=== PATIENT | female | born 1950 | race Caucasian/White ===

== ENCOUNTER → 2018-07-17 10:12 | Outpatient (CLI) | payer MEDICARE, OTHER, SELFPAY ==
[2018-07-17 11:16] LABS: Thyroid Stim Hormone (TSH) 0.53 uIU/mL (0.358-3.74)
== END ==
PROVIDERS: Family Provider Internal Medicine; PCP Internal Medicine; Referring Provider Internal Medicine Endocrinology, Diabetes & Metabolism; Visit Provider Internal Medicine Endocrinology, Diabetes & Metabolism
DX: E03.9 Hypothyroidism, unspecified (principal)
CPT/HCPCS: 36415; 84443

== ENCOUNTER → 2018-11-14 10:32 | Outpatient (CLI) | payer MEDICARE, OTHER, SELFPAY ==
--- NOTE | 2018-11-14 10:35 | BI_ITS ---
MAMMOGRAPHY - UNILATERAL DIAGNOSTIC: RIGHT BREAST REASON FOR EXAM: Female, 67 years old. Prior left mastectomy. Remote right excisional breast biopsy. PERTINENT HISTORY: Personal history of breast cancer. Sister with breast cancer. Aunt with breast cancer. TECHNIQUE: Digital unilateral breast tico (3D mammographic acquisition) in the CC and MLO projections. 2-D mediolateral oblique (MLO) and craniocaudad (CC) views of both breasts were obtained. CAD: Full Field Digital Mammography with Computer Added Detection was performed. COMPARISON: Comparison is made with prior study dated September 05, 2017 and April 08, 2016. FINDINGS: Breast Composition: The breasts are extremely dense, which lowers the sensitivity of mammography. There are no dominant masses or suspicious calcifications. Stable focal area of architectural distortion is seen in the upper outer quadrant of the right breast and compared with prior excisional breast biopsy. No other significant abnormalities are identified. There has been no significant change since the prior study. BI/UNILAT RT SCRN W/CAD IMPRESSION: Stable unilateral diagnostic mammogram. One year follow-up mammogram recommended. (A) ASSESSMENT CATEGORY: BIRADS Category 2: Benign. A letter regarding these results will be sent to the patient by the facility within 30 days. Approximately 10% of breast cancers are not detected by mammography. A normal mammogram should not delay biopsy of a clinically suspicious abnormality. Electronically Signed: Linus Noble MD at 13:53 EST , Service support ,
== END ==
PROVIDERS: Family Provider Internal Medicine; PCP Internal Medicine; Referring Provider Internal Medicine; Visit Provider Internal Medicine
DX: Z12.31 Encounter for screening mammogram for malignant neoplasm of breast (principal); Z85.3 Personal history of malignant neoplasm of breast; Z80.3 Family history of malignant neoplasm of breast
CPT/HCPCS: 77061; 77067; G0279

== ENCOUNTER → 2018-11-30 10:51 | Outpatient (CLI) | payer MEDICARE, OTHER, SELFPAY ==
--- NOTE | 2018-11-30 11:05 | BD_ITS ---
STUDY: DUAL ENERGY X-RAY ABSORPTIOMETRY / DXA REASON FOR EXAM: Female, 67 years old. The patient is postmenopausal. Loss of height. TECHNIQUE: Bone Mineral Density (BMD) measurements of lumbar spine and bilateral hips were obtained. COMPARISON: Comparison is made with prior examination dated July 20, 2016. FINDINGS: Lumbar Spine (L1-L4): g/cm2 (1.130) / T-score (-0.4) / Z-score (1.2) Findings are suggestive of normal bone density with a low fracture risk. Increased kyphosis. Left Femur Total: g/cm2 (0.709) / T-score (-2.4) / Z-score (-1.0) Left Femoral Neck: g/cm2 (0.680) / T-score (-2.6) / Z-score (-1.0) Right Femur Total: g/cm2 (0.665) / T-score (-2.7) / Z-score (-1.4) Right Femoral Neck: g/cm2 (0.656) / T-score (-2.7) / Z-score (-1.2) The T-Scores on the most recent prior examination were: Lumbar Spine (L1-L4): There has been worsening of bone density since the previous examination. Left Femur Total: which represents a worsening of 5.6%. Right Femur Total: which represents a worsening of 6.7%. BD/Dexa Bone Density Study IMPRESSION: The patient is considered osteoporotic as outlined below according to World Matthew Organization (WHO) criteria with a high fracture risk. There has been worsening of bone density since the previous examination. Reference Information: The T-score is the number of standard deviations above or below the standard which is normal for young adults at their peak bone mineral density. The World Health Organization (WHO) interprets the T-scores as follows: Above -1 Normal bone density Between -1 and -2.5 Osteopenia Equal to / or below -2.5 Osteoporosis As a practical clinical guideline, osteopenia may be graded as follows: Mild -1 through -1.5 Moderate -1.6 through -2.0 Severe -2.1 through -2.4 The Z-score is the number of standard deviations above or below age-matched controls. A Z-score of less than -1.5 would be considered abnormal. References: 1. NIH Osteoporosis and Related Bone Diseases http://www.osteo.org 2. International Society for Clinical Densitometry http://www.iscd.org 3. National Osteoporosis Foundation http://www.nof.org Electronically Signed: Linus Noble, at 15:42 EST , Service support ,
== END ==
PROVIDERS: Family Provider Internal Medicine; PCP Internal Medicine; Referring Provider Internal Medicine; Visit Provider Internal Medicine
DX: M81.0 Age-related osteoporosis without current pathological fracture (principal)
CPT/HCPCS: 77080

== ENCOUNTER → 2018-12-07 12:27 | Outpatient (CLI) | payer SELFPAY ==
--- NOTE | 2018-12-07 12:33 | CT_ITS ---
STUDY: CT CHEST WITHOUT CONTRAST REASON FOR EXAM: Female, 67 years old. Calcium scoring examination. Radiological over read. RADIATION DOSAGE (If Supplied By Facility): CTDIvol = ( 12.19 ) mGy, DLP = ( 243.79 ) mGycm TECHNIQUE: Transaxial imaging was performed without the administration of intravenous contrast material. Individualized dose optimization techniques were used for this CT. COMPARISON: None. FINDINGS: Minimal increased markings at the lung bases suggestive of bowing or scarring. There is no demonstrated pleural abnormality. Minimal pericardial thickening along the right side of the base of the heart. There are multiple small lymph nodes within the mediastinum, which are normal in size and morphology most compatible with reactive lymph hyperplasia. Calcified bilateral hilar lymph nodes more prominent on the right side. Normal unenhanced pulmonary arteries. Normal aorta arch and descending thoracic aorta. There are multi-level degenerative changes of the thoracic spine. There is no demonstrated abnormality of the visualized upper abdomen. CT/Limited Chest CT w/CCTA IMPRESSION: Calcified mediastinal and hilar adenopathy. Minimal pericardial thickening at the base along the right side of the heart. Electronically Signed: Linus Noble, at 8:27 EDT , Service support ,
--- NOTE | 2018-12-08 12:33 | CA.SCORE ---
Calcium Scoring Date of Study:: 12/07/18 Coronary Calcium Scoring: Coronary artery calcium score: Left main: 0 Left anterior descendin Left circumflex: 0 Right coronary artery: 0 Total Agatston score: 0 Conclusion: Conclusion: In a published study, 0% of people of the same gender and similar age had the same or lower scores. Impression: Impression: The total calcium score (0) is below the 25th percentile for women between the ages of 65 and 69. (Exact percentile calculated to be 0%; this means 0% of the population has similar calcium score and 99% of the population is a higher calcium score than this patient.) Calcium score of 0 demonstrates no identifiable atherosclerotic plaque. Very low cardiovascular disease risk. There is a less than 5% chance of presence of coronary artery disease. Essentially a negative examination. A full evaluation of cardiac risk should include an assessment of all conventional risk factors, and the scores and percentile ranking is reported herein should be evaluated in this context. This note was generated using a voice recognition system and there may be incorrect words, spelling or punctuation that were not noted when reviewing the office note prior to saving.
== END ==
PROVIDERS: Family Provider Internal Medicine; PCP Internal Medicine; Referring Provider Internal Medicine; Visit Provider Internal Medicine
DX: Z78.0 Asymptomatic menopausal state (principal)
CPT/HCPCS: 75571; 76380

== ENCOUNTER → 2019-01-02 11:01 | Outpatient (CLI) | payer MEDICARE, OTHER, SELFPAY ==
[2019-01-02 12:54] LABS: Thyroid Stim Hormone (TSH) 2.17 uIU/mL (0.358-3.74)
== END ==
PROVIDERS: Family Provider Internal Medicine; PCP Internal Medicine; Referring Provider Internal Medicine Endocrinology, Diabetes & Metabolism; Visit Provider Internal Medicine Endocrinology, Diabetes & Metabolism
DX: E03.9 Hypothyroidism, unspecified (principal)
CPT/HCPCS: 36415; 84443

== ENCOUNTER → 2019-03-13 14:52 | Outpatient (CLI) | payer MEDICARE, OTHER, SELFPAY ==
[2019-01-03 09:48] VITALS: BMI 20.9
[2019-03-13 14:57] VITALS: BP 96/59; PULSE 75; RESP 18; TEMP 36.4; O2SAT 95; BMI 20.3
[2019-03-13] MEDS: DENOSUMAB 60 MG/ML ML SQ (15:05)
== END ==
PROVIDERS: Family Provider Internal Medicine; PCP Internal Medicine; Referring Provider Internal Medicine; Visit Provider Internal Medicine
DX: M81.0 Age-related osteoporosis without current pathological fracture (principal)
CPT/HCPCS: 96372; J0897

== ENCOUNTER → 2019-03-19 13:52 | Outpatient (CLI) | payer MEDICARE, OTHER, SELFPAY ==
[2019-01-03 09:48] VITALS: BMI 20.9
[2019-03-13 14:57] VITALS: BMI 20.3
--- NOTE | 2019-03-19 13:57 | US_ITS ---
HISTORY: Thyroid disease. Comparison CT scan of the neck dated February 12, 2016 demonstrates that the right lobe of the thyroid gland has been resected, and the left lobe has enlarged. EXAMINATION: US Thyroid (eg thyroid, parathyroid, parotid) TECHNIQUE: Ortiz scale and color doppler imaging was performed of the thyroid gland. COMPARISON: Neck CT of February 12, 2016 FINDINGS: RIGHT THYROID LOBE: Has been resected. LEFT THYROID LOBE: Measures 6.7 x 2.5 x 3.6 cm. Heterogeneous echotexture with normal vascularity. No thyroid nodules are present. ISTHMUS: Partially remains and is 3 mm in diameter. US/Thyroid IMPRESSION: Findings are similar to the CT scan of 2016. The right lobe and part of the thyroid isthmus of the thyroid gland have been resected. The remaining left lobe has hypertrophied and is heterogeneous. No focal thyroid lesions are perceived. at 0345 Reported and signed by: Chalo Nesbitt MD Electronically Signed: Chalo Nesbitt MD at 3:48 EDT Tel , Service support ,
== END ==
PROVIDERS: Family Provider Internal Medicine; PCP Internal Medicine; Referring Provider Internal Medicine Endocrinology, Diabetes & Metabolism; Visit Provider Internal Medicine Endocrinology, Diabetes & Metabolism
DX: E04.2 Nontoxic multinodular goiter (principal)
CPT/HCPCS: 76536

== ENCOUNTER → 2019-07-03 08:44 | Outpatient (CLI) | payer MEDICARE, OTHER, SELFPAY ==
[2019-03-13 14:57] VITALS: BMI 20.3
[2019-07-03 11:19] LABS: Thyroid Stim Hormone (TSH) 1.88 uIU/mL (0.358-3.74)
== END ==
PROVIDERS: Family Provider Internal Medicine; PCP Internal Medicine; Referring Provider Internal Medicine Endocrinology, Diabetes & Metabolism; Visit Provider Internal Medicine Endocrinology, Diabetes & Metabolism
DX: E89.0 Postprocedural hypothyroidism (principal)
CPT/HCPCS: 36415; 84443

== ENCOUNTER → 2019-09-12 12:50 | Outpatient (CLI) | payer MEDICARE, OTHER, SELFPAY ==
[2019-03-13 14:57] VITALS: BMI 20.3
[2019-09-12] MEDS: DENOSUMAB 60 MG/ML ML SQ (13:11)
[2019-09-12 13:12] VITALS: BP 98/70; PULSE 67; RESP 14; TEMP 36.3; O2SAT 99; BMI 20.3
== END ==
PROVIDERS: Family Provider Internal Medicine; PCP Internal Medicine; Referring Provider Internal Medicine; Visit Provider Internal Medicine
DX: M81.0 Age-related osteoporosis without current pathological fracture (principal)
CPT/HCPCS: 96372; J0897

== ENCOUNTER → 2019-11-26 12:50 | Outpatient (CLI) | payer MEDICARE, OTHER, SELFPAY ==
[2019-09-12 13:12] VITALS: BMI 20.3
--- NOTE | 2019-11-26 12:53 | BI_ITS ---
MAMMOGRAPHY - UNILATERAL SCREENING: RIGHT BREAST REASON FOR EXAM: Female, 68 years old. Routine annual screening examination (unilateral). PERTINENT HISTORY: Previous left mastectomy for DCIS UNILATERAL RIGHTBreast DIGITAL MAMMOGRAM WITH TOMOSYNTHESIS: Mediolateraloblique and craniocaudal views demonstrate no evidence of dominant parenchymal masses. No cluster of microcalcifications or architectural distortion is seen. No evidence of skin thickening is identified. There has been no significant change since 11/14/2018. Breast Density: The breast tissue is extremely dense which may lower the sensitivity of mammography. CAD was used to assist in final assessment. IMPRESSION: NORMAL RIGHT BREAST MAMMOGRAM. FINAL ASSESSMENT: BIRAD 1 (NEGATIVE) YEARLY MAMMOGRAM RECOMMENDED Electronically Signed: Richard Elizabeth, at 18:25 EST Tel , Service support , BI/SCREEN MAMM (CAD) W/YOVANI UNI R
== END ==
PROVIDERS: PCP Internal Medicine; Referring Provider Internal Medicine; Visit Provider Internal Medicine
DX: Z12.31 Encounter for screening mammogram for malignant neoplasm of breast (principal)
CPT/HCPCS: 77063; 77067

== ENCOUNTER → 2020-03-13 13:20 | Outpatient (CLI) | payer MEDICARE, OTHER, SELFPAY ==
[2019-09-12 13:12] VITALS: BMI 20.3
[2020-03-13 13:31] VITALS: BP 103/69; PULSE 57; RESP 18; TEMP 35.9; O2SAT 100; BMI 20.3
[2020-03-13] MEDS: DENOSUMAB 60 MG/ML SQ (13:37)
== END ==
PROVIDERS: PCP Internal Medicine; Referring Provider Internal Medicine; Visit Provider Internal Medicine
DX: M81.0 Age-related osteoporosis without current pathological fracture (principal)
CPT/HCPCS: 96372; J0897

== ENCOUNTER → 2020-05-28 13:08 | Outpatient (CLI) | payer MEDICARE, OTHER, SELFPAY ==
[2020-03-13 13:31] VITALS: BMI 20.3
[2020-05-28 14:01] LABS: Thyroid Stim Hormone (TSH) 1.76 uIU/mL (0.358-3.74)
== END ==
PROVIDERS: PCP Internal Medicine; Referring Provider Internal Medicine Endocrinology, Diabetes & Metabolism; Visit Provider Internal Medicine Endocrinology, Diabetes & Metabolism
DX: E89.0 Postprocedural hypothyroidism (principal); M81.0 Age-related osteoporosis without current pathological fracture
CPT/HCPCS: 36415; 84443

== ENCOUNTER → 2020-09-11 12:58 | Outpatient (CLI) | payer MEDICARE, OTHER, SELFPAY ==
[2019-09-12 13:12] VITALS: BMI 20.3
[2020-03-13 13:31] VITALS: BMI 20.3
[2020-09-11 13:24] VITALS: BP 100/66; PULSE 64; RESP 18; TEMP 36.4; O2SAT 98; BMI 21.2
[2020-09-11] MEDS: DENOSUMAB 60 MG/ML SQ (13:27)
== END ==
PROVIDERS: PCP Internal Medicine; Referring Provider Internal Medicine; Visit Provider Internal Medicine
DX: M81.0 Age-related osteoporosis without current pathological fracture (principal)
CPT/HCPCS: 96372; J0897

== ENCOUNTER 2020-12-01 11:59 | Outpatient (RCR) | payer MEDICARE, OTHER, SELFPAY ==
[2020-09-11 13:24] VITALS: BMI 21.2
== END 2020-12-01 23:59 ==
LOC: IMMUN 11:59
PROVIDERS: PCP Internal Medicine; Visit Provider Family Medicine
DX: Z23 Encounter for immunization (principal)
CPT/HCPCS: 0011A; 0012A

== ENCOUNTER → 2020-12-15 09:22 | Outpatient (CLI) | payer MEDICARE, OTHER, SELFPAY ==
[2020-09-11 13:24] VITALS: BMI 21.2
[2020-12-15 11:11] LABS: Thyroid Stim Hormone (TSH) 2.06 uIU/mL (0.358-3.74)
== END ==
PROVIDERS: PCP Internal Medicine; Referring Provider Internal Medicine Endocrinology, Diabetes & Metabolism; Visit Provider Internal Medicine Endocrinology, Diabetes & Metabolism
DX: E03.9 Hypothyroidism, unspecified (principal)
CPT/HCPCS: 36415; 84443

== ENCOUNTER → 2021-03-06 07:58 | Outpatient (CLI) | payer MEDICARE, OTHER, SELFPAY ==
[2020-09-11 13:24] VITALS: BMI 21.2
--- NOTE | 2021-03-06 08:30 | MRI_ITS ---
STUDY: MRI BRAIN WITH AND WITHOUT CONTRAST REASON FOR EXAM: Female, 70 years old. VERTIGO -- Hx of breast CA and amp; venous angioma TECHNIQUE: Standardized multiplanar fat and water weighted pulse sequences were obtained. IV 11ml Dotarem was administered for the contrast portion of the examination. COMPARISON: None. FINDINGS: Normal size of the ventricles and extra-axial spaces for the patient''s age. There are multiple white matter hyperintensities, distributed throughout the deep white matter tracts of the cerebral hemispheres, consistent with moderate chronic white matter ischemic changes. There is no evidence for recent intracranial ischemia or other cause of cytotoxic edema on diffusion weighted imaging (DWI). Normal bilateral basal ganglia. Normal thalami. There is no extra-axial fluid accumulation. Normal flow voids within the major intracranial circulation suggesting patency by spin echo criteria. Normal venous enhancement. There is no enhancing intra-axial or extra-axial abnormality. Normal sella turcica, pituitary gland, infundibular stalk, optic chiasm and hypothalamus. Normal tectal plate and pineal gland. Normal midbrain, shamir and medulla. Within the left cerebellum is a incidental developmental venous anomaly. Normal basal cisterns. Normal bilateral temporal bones. Normal bilateral internal auditory canals. No demonstrated orbital abnormality, within the constraints of a routine brain study. Normal visualized paranasal sinuses. Normal calvarium and skull base. Normal visualized soft tissue structures. Normal visualized upper cervical spine. MRI/Brain W/WO Contrast IMPRESSION: Moderate periventricular white matter microvascular ischemic changes. No evidence of underlying IAC abnormality or abnormal enhancement. Left cerebellar incidental developmental venous anomaly. Electronically Signed: Dre Bustamante DO at 10:15 EDT , Service support ,
--- NOTE | 2021-03-06 11:29 | US_ITS ---
STUDY: ULTRASOUND OF THE FEMALE PELVIS - COMPLETE REASON FOR EXAM: Female, 70 years old. PELVIC CRAMPING LMP: Patient is postmenopausal. TECHNIQUE: Transvaginal TECHNICAL QUALITY: Adequate. COMPARISON: None. FINDINGS: The uterus is anteflexed and is in a midline position. The uterus measures 5.9 cm x 2.9 cm x 1.6 cm. There is a Nabothian cyst of the cervix. The endometrium is thickened and measures 9 point mm in thickness, and is fluid distended. There is no demonstrated endometrial mass. There is no demonstrated myometrial mass. I.U.D. - The patient does not have an I.U.D. The patient is status post right oophorectomy. The patient is status post left oophorectomy. There is no fluid in the cul-de-sac. US/Transvaginal Non- IMPRESSION: Fluid distended endometrium measuring 9 mm. Clinical correlation recommended. Electronically Signed: Linus Noble MD at 12:59 EDT , Service support ,
== END ==
PROVIDERS: PCP Internal Medicine; Referring Provider Internal Medicine; Visit Provider Internal Medicine
DX: R10.2 Pelvic and perineal pain (principal); D18.02 Hemangioma of intracranial structures; R51.9 Headache, unspecified; H93.19 Tinnitus, unspecified ear; H81.91 Unspecified disorder of vestibular function, right ear; Z85.3 Personal history of malignant neoplasm of breast
CPT/HCPCS: 70553; 76830; A9575

== ENCOUNTER → 2021-03-12 12:52 | Outpatient (CLI) | payer MEDICARE, OTHER, SELFPAY ==
[2020-03-13 13:31] VITALS: BMI 20.3
[2020-09-11 13:24] VITALS: BMI 21.2
[2021-03-12 13:04] VITALS: BP 107/71; PULSE 58; RESP 16; TEMP 36.3; O2SAT 99; BMI 21.9
[2021-03-12] MEDS: DENOSUMAB 60 MG/ML SC (13:11)
== END ==
PROVIDERS: PCP Internal Medicine; Referring Provider Internal Medicine; Visit Provider Internal Medicine
DX: M81.0 Age-related osteoporosis without current pathological fracture (principal)
CPT/HCPCS: 96372; J0897

== ENCOUNTER → 2021-03-18 11:22 | Outpatient (CLI) | payer MEDICARE, OTHER, SELFPAY ==
[2020-09-11 13:24] VITALS: BMI 21.2
[2021-03-12 13:04] VITALS: BMI 21.9
--- NOTE | 2021-03-18 11:25 | BD_ITS ---
STUDY: DUAL ENERGY X-RAY ABSORPTIOMETRY / DXA REASON FOR EXAM: Female, 70 years old. M810. The patient is postmenopausal. Loss of height. TECHNIQUE: Bone Mineral Density (BMD) measurements of lumbar spine and bilateral hips were obtained. COMPARISON: Comparison is made with prior examination of 11/30/2018. FINDINGS: Lumbar Spine (L1-L4): g/cm2 (1.231) / T-score (0.4) / Z-score (2.1) Findings are suggestive of normal bone density with a low fracture risk. Left Femur Total: g/cm2 (0.745) / T-score (-2.1) / Z-score (-0.6) Left Femoral Neck: g/cm2 (0.686) / T-score (-2.5) / Z-score (-0.8) Right Femur Total: g/cm2 (0.734) / T-score (-2.2) / Z-score (-0.7) Right Femoral Neck: g/cm2 (0.683) / T-score (-2.6) / Z-score (0.9) The T-Scores on the most recent prior examination were: Lumbar Spine (L1-L4): There has been improvement of bone density since the previous examination. Left Femur Total: which represents an improvement of 5.1%. Right Femur Total: which represents an improvement of 10.4%. BD/Dexa Bone Density Study IMPRESSION: The patient is considered osteoporotic as outlined below according to World Matthew Organization (WHO) criteria with a high fracture risk. There has been improvement of bone density since the previous examination. Reference Information: The T-score is the number of standard deviations above or below the standard which is normal for young adults at their peak bone mineral density. The World Health Organization (WHO) interprets the T-scores as follows: Above -1 Normal bone density Between -1 and -2.5 Osteopenia Equal to / or below -2.5 Osteoporosis As a practical clinical guideline, osteopenia may be graded as follows: Mild -1 through -1.5 Moderate -1.6 through -2.0 Severe -2.1 through -2.4 The Z-score is the number of standard deviations above or below age-matched controls. A Z-score of less than -1.5 would be considered abnormal. References: 1. NIH Osteoporosis and Related Bone Diseases www osteo.org 2. International Society for Clinical Densitometry www iscd.org 3. National Osteoporosis Foundation www nof.org Electronically Signed: Linus Noble MD at 12:47 EDT , Service support ,
--- NOTE | 2021-03-18 11:26 | BI_ITS ---
MAMMOGRAPHY - UNILATERAL SCREENING: LEFT BREAST REASON FOR EXAM: Female, 70 years old. Routine annual screening examination (unilateral). PERTINENT HISTORY: Personal history of breast cancer. Prior left mastectomy. Sister with breast cancer. Aunt with breast cancer. Right excisional breast biopsies. TECHNIQUE: Digital unilateral breast yovani (3D mammographic acquisition) in the CC and MLO projections. 2-D mediolateral oblique (MLO) and craniocaudad (CC) views of both breasts were obtained. CAD: Full Field Digital Mammography with Computer Added Detection was performed. COMPARISON: Comparison is made with prior study dated 11/26/2019 and 11/14/2018. FINDINGS: Breast Composition: The breasts are extremely dense, which lowers the sensitivity of mammography. There are no dominant masses or suspicious calcifications. Stable focal area of architectural distortion in the upper-outer quadrant of right breast with history of prior excisional breast biopsy. No other significant abnormalities are identified. There has been no significant change since the prior study. BI/SCREEN MAMM (CAD) W/YOVANI UNI L IMPRESSION: Stable unilateral screening mammogram. Yearly follow-up mammogram recommended. (A) ASSESSMENT CATEGORY: BIRADS Category 2: Benign. A letter regarding these results will be sent to the patient by the facility within 30 days. Approximately 10% of breast cancers are not detected by mammography. A normal mammogram should not delay biopsy of a clinically suspicious abnormality. [id number] Electronically Signed: Linus Noble MD at 12:19 EDT , Service support ,
== END ==
PROVIDERS: PCP Internal Medicine; Referring Provider Internal Medicine; Visit Provider Internal Medicine
DX: M81.0 Age-related osteoporosis without current pathological fracture (principal); Z12.31 Encounter for screening mammogram for malignant neoplasm of breast
CPT/HCPCS: 77063; 77067; 77080

== ENCOUNTER 2021-04-21 08:15 | Day surgery (SDC) | payer MEDICARE, OTHER, SELFPAY ==
[2021-03-24 10:55] VITALS: BMI 21.9
[2021-03-27 14:30] VITALS: BMI 21.9
--- NOTE | 2021-04-21 | EMB_PTH ---
PATIENT: JEFF KEVIN LOC: [facility] [place][id number] AGE/SX: 70/F ROOM: RE04/21/[address]: Dr. Mary Grace Ibrahim MD : 1950 BED: DIS: 04/21/2021 SPEC #: [id number] RECD: 04/21/21 13:07 STATUS: ANABELL GABRIEL #: [id number] ANNE: 04/21/21 00:[address]: Mary Grace Ibrahim DEPT: SURGICAL PATHOLOGY RECD BY: Kirby Martel ENTERED: 04/21/21 13:07 SP TYPE: ENDOM BX/C OT DR: Dr. Veronica Whyte MD Tissues: Endometrium, NOS Procedures: Surgery Specimen Level IV HEADER OPERATION: Hysteroscopy, dilation and curettage, polypectomy PRE-OP DIAGNOSIS: Thickened endometrium, dyspareunia TISSUE SUBMITTED: Endometrial curettings and polyp MICROSCOPIC DIAGNOSIS Endometrial curettings and polyp: Rare strips of benign glandular mucosa and squamous mucosa. See comment. AM:rory 04/22/2021 COMMENT The specimen primarily consists of amorphous proteinaceous material. A polyp is not identified. Clinical correlation is suggested. MICROSCOPIC DESCRIPTION Slides are reviewed. GROSS DESCRIPTION Received in fixative is one container labeled with the patient's name and designated endometrial curettings and polyp. The specimen consists of a scant amount of soft tissue. The specimen is totally submitted for cell block preparation. / SJ:rory 04/21/21 TC:5 CPT: 02048
--- NOTE | 2021-04-21 08:47 | EKG12_ITS ---
Test Reason : PRE OP Blood Pressure : / mmHG Vent. Rate : 064 BPM Atrial Rate : 064 BPM P-R Int : 158 ms QRS Dur : 092 ms QT Int : 414 ms P-R-T Axes : 033 -49 051 degrees QTc Int : 427 ms Normal sinus rhythm Left anterior fascicular block Abnormal ECG When compared with ECG of 10-AUG-2004 12:22, Left anterior fascicular block is now Present Confirmed by GENEVIEVE FERMIN, ANGELA ([id number]), tape editor MARY KEMP ([id number]) on 04/24/2021 12:50:23 PM Referred By: Mary Grace Ibrahim Confirmed By:ANGELA VALLEJO MD
[2021-04-21 08:51] VITALS: BP 123/69; PULSE 64; RESP 14; TEMP 36.2; O2SAT 100; BMI 23.4
--- NOTE | 2021-04-21 09:03 | PCM.HP.BLA ---
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 Is patient in pain?: No Allergies No Known Allergies Allergy (Verified 03/12/21 13:07) Medications levothyroxine 88 mcg tablet 88 mcg PO DAILY 09/05/18 [History Confirmed 03/24/21] vitamins A,C,P-ccba-uxxtjm 7,160 unit-113 mg-100 unit tablet 2 tab PO BID 09/05/18 [History Confirmed 03/24/21] biotin 1,000 mcg chewable tablet 1,000 mcg PO DAILY 03/13/21 [History Confirmed 03/24/21] calcium-magnesium 300 mg-300 mg tablet 1 tab PO DAILY 03/13/21 [History Confirmed 03/24/21] cholecalciferol (vitamin D3) 50 mcg (2,000 unit) capsule 50 mcg PO DAILY 03/13/21 [History Confirmed 03/24/21] denosumab 60 mg/mL subcutaneous syringe 60 mg SUBCUT [id number] 03/13/21 [History Confirmed 03/24/21] sertraline 25 mg tablet 50 mg PO DAILY tab 03/13/21 [History Confirmed 03/24/21] B-complex with vitamin C 1 tab PO DAILY 03/24/21 [History Confirmed 03/24/21] Is last menstrual period known: No Post menopausal: Yes Patient : No : No [facility] Medical History (Updated 03/26/21 @ 15:[address] Mary Grace Ibrahim MD) Arthritis Back problem Bone fracture Breast cancer Breast lump in female Cardiomyopathy Cataracts, bilateral Generalized headaches Goiter History of HPV infection HPV (human papilloma virus) infection Macular degeneration Osteoarthritis Rheumatoid arthritis Skin cancer Thyroid disease Vestibular disorder Vision problems Surgical History (Updated 03/24/21 @ 10:52 by Mabel Wilde) History of colposcopy History of ectopic History of left oophorectomy History of mastectomy History of right oophorectomy History of thyroidectomy Family History (Updated 03/24/21 @ 10:54 by Mabel Wilde) Mother , AT AGE 97 Arthritis Heart disease Osteoporosis Thyroid disorder Father Depression (emotion) Suicide Sister Arthritis Breast cancer Thyroid disorder Aunt Breast cancer Ovarian cancer Unknown Breast cancer first cousin and nieces Social History (Updated 03/24/21 @ 10:55 by Mabel Iraheta Smoking Status: Former smoker alcohol intake: never substance use type: does not use caffeine: Yes what type of physical activity do you participate in: walking seatbelt use: always do you feel safe at home: Yes additional social history: DOES NOT USE ASPIRIN DOES USE IBUPROFEN HPI Referral for pelvic u/s findings Details: JEFF KEVIN is a 70 year old who presents for endometrial thickening. She has a history of breast cancer and strong family history of cancer in general. She dneis any bleeding or abnormal discharge. She has some lower abdominal bloating. she was referred for a pelvic ultrasound by Dr Whyte that showed thickened lining. Female Reproductive History Questions: sexually active: Yes and dyspareunia: Yes (s/p micki luis eduardo and some dilators) Menopausal Symptoms: No night sweats Pregancy History 3 Elective abortions Hx Para 0 Spontaneous abortions Hx # Term Pregnancies Ectopic pregnancies Hx # Pregnancies Multiple births # of living children ROS Const Constitutional: Denies fatigue, night sweats, weight gain or weight loss ENT ENT: Reports system reviewed and no additional complaints, except as documented Cardio Card: Denies chest pain Resp Resp: Denies cough or dyspnea GI GI: Reports as per HPI; Denies abdominal pain, constipation, nausea or vomiting : Denies nipple discharge, urinary frequency, urinary incontinence, urinary hesitancy, urinary urgency, vaginal discharge, vaginal dryness, vaginal odor or vaginal pruritus Musc Musc: Reports arthralgias and back pain; Denies muscle weakness Skin Skin/Breast: Denies alopecia, change in hair, dry skin, breast mass, breast pain, breast skin changes or nipple discharge Neuro Neuro: Reports system reviewed and no additional complaints, except as documented Psych Psych: Reports system reviewed and no additional complaints, except as documented Endo Endo: Denies cold intolerance, excessive sweating, heat intolerance or polydipsia Fernando/Lymph Hematologic/Lymphatic: Denies easy bleeding, Denies easy bruising and Denies lymphadenopathy Exam Const General: cooperative, healthy appearing, comfortable, no acute distress and well developed Orientation: alert [facility] Head: normal to inspection and normocephalic Ears: hearing grossly normal bilaterally and external ears normal Nose: external nose normal and nares normal Face and sinus: normal facial exam Neck Neck: normal visual inspection and no lymphadenopathy Thyroid: thyroid normal Chest Chest palpation & inspection: normal inspection of the chest Resp Effort & Inspection: normal respiratory effort Auscultation: clear to auscultation bilaterally Cardio Rate: regular rate Rhythm: regular rhythm Heart Sounds: S1 normal and S2 normal GI Inspection: normal to inspection and non-distended Palpation: soft and no hepatosplenomegaly General: bladder normal to palpation External Female Exam: normal external appearance and normal appearance of the urethra Urethra: normal appearance of the urethra, normal palpation and no discharge Speculum Exam - Vagina: normal appearance of the vagina and normal vaginal discharge Speculum Exam - Cervix: normal appearance of the cervix and nontender Bimanual Exam- Vagina & Uterus: normal bimanual exam, uterine size normal, bladder normal to palpation, uterine shape normal, No tender, uterine mobility normal, consistency normal, normal palpation and non-tender Bimanual Exam- Adnexa, other: normal adnexae, adnexae mobile, no masses and normal Pelvic Support: normal Musc Other: gross motor intact no deficits, full bilateral strength Skin General: no rashes or lesions noted Neuro General: patient alert, patient awake, moves all extremities and no focal motor deficits Motor: muscle tone normal throughout Extrem General: normal to inspection and no pedal edema Psych Appearance: grossly normal Mental Status: mental status grossly normal Affect: normal affect Speech and Movement: speech and movement normal Coding Level of Care Code Off vis,new,level 4 Diagnoses Thickened endometrium R93.89 Dyspareunia Assessment and Plan Assessment and Plan (1) Thickened endometrium: Status: Acute Comment: plan d and c hysteroscopy for evaluation Plan - Dr. Mary Grace Ibrahim MD: After discussing the patient's diagnosis and treatment plan options, patient wishes to proceed with surgical management. I have discussed with the patient the risks, benefits, and alternatives of the procedure which include but are not limited to risks of anesthesia, bleeding, infection, possible damage to bowel, bladder, or surrounding vasculature which could lead to additional surgery to evaluate any complications. Patient agrees to procedure and wishes to proceed. ACOG/uptodate references given for additional information regarding procedure. (2) Dyspareunia: Status: Acute UPDATE- I have seen the patient and performed any clinically relevant updates to the history and physical exam. Mary Grace Ibrahim MD
[2021-04-21 09:08] LABS: Absolute Lymphocyte Count 0.76 X10^3/uL (0.83-4.51); Basophil# 0.02 X10^3/uL; Basophil% 0.4 % (0-1); Eosinophil# 0.08 X10^3/uL; Eosinophils% 1.5 % (0-5); Hematocrit 42.4 % (37-47); Hemoglobin 13.7 g/dL (12.0-15.0); Lymphocyte # 0.76 X10^3/ul (0.83-4.51); Lymphocyte % 14.1 % (19-41); Mean Corp Hgb Conc 32.3 g/dL (32-36); Mean Corpuscular Hgb 31.1 pg (27.0-32.0); Mean Corpuscular Volume 96.1 fL (81-99); Mean Platelet Vol. 10.8 fl (6.2-12.0); Monocyte# 0.53 X10^3/uL; Monocyte% 9.8 % (0-10); NRBC Flagged by Analyzer 0 % (0-5); Platelet Count 168 K/mm3 (150-450); RBC Distribution Width CV 12.8 % (11.6-14.6); RBC Distribution Width SD 46.1 fl (35.1-43.9); Red Blood Count 4.41 M/mm3 (4.2-5.4); White Blood Count 5.4 K/mm3 (4.4-11.0)
[2021-04-21] MEDS: Lactated Ringers 1,000 ML 125 ML IV (09:12)
[2021-04-21 09:27] LABS: AST(SGOT) 19 U/L (15-37); Alanine Aminotransfer ALT/SGPT 23 U/L (13-56); Albumin, Serum 3.7 g/dL (3.2-5.0); Alkaline Phosphatase 68 U/L (45-117); Anion Gap 4 (5-15); BUN 20 mg/dL (7-18); BUN/Creat Ratio 24.5 RATIO (10-20); Calcium,Total 8.4 mg/dL (8.5-10.1); Chloride 106 mmol/L (98-107); Creatinine, Serum 0.82 mg/dL (0.55-1.02); EST Glomerular Filtration Rate 74 mL/min (>60); Est Glom Filt Rate - Afr Amer 89 mL/min (>60); Estimated Creatinine Clearance 50.49 ml/min; Globulin 3.7 g/dL (2.2-4.2); Glucose 85 mg/dL (74-106); Protein, Total 7.4 g/dL (6.4-8.2); Sodium Level 140 mmol/L (136-145)
--- NOTE | 2021-04-21 10:53 | OP.PCM_ITS ---
Report of Operation Date of Procedure: 04/21/21 Pre-Operative Diagnosis: see problem list Post-Operative Diagnosis: same Surgery/Procedure Performed:: D&C hysteroscopy polypectomy Description of Surgical Findings:: Endometrial cavity filled with mucoid material due to severe cervical stenosis atrophic lining, small endocervical polyp statement clerks supervisor: None Type of Anesthesia: Local MAC Special Medications: none Specimen's removed: EMC endocervical polyp Drains: none Estimated Blood Loss (mL): 50 Fluids Replaced: crystalloid Description of Procedure: Patient was prepped and draped in a normal sterile fashion under MAC anesthesia. A weighted speculum was placed in the vagina and the anterior lip of the cervix was grasped with a single-tooth tenaculum. A paracervical block was placed with 1% lidocaine. Cervix was progressively dilated to allow passage of a 5 mm hysteroscope. The lining was fully visualized and noted to have a thin atrophic lining.. Uterine sounded to 7 cm. Curettage was performed and scant amount of atrophic cells and small endocervical polyp tissue was removed, sent to pathology. All instruments were removed from the vagina and excellent hemostasis was noted. Patient was awoken and taken to recovery in stable condition. Grafts/Implants Used: none Complications none Admit VTE Documentation VTE Present on Admission: No VTE Mechan Device Prophylaxis: SCD's Multi Select Codes Urinary/Genital Urinary/Genital CPT Codes: 71600 Hysteroscopy,EMC, Polypectomy
--- NOTE | 2021-04-21 10:54 | EX.PCM.DISCH ---
Discharge Instructions Procedure D&C Diet Discharge Diet: No restrictions Activity Discharge Activity: Return to Normal Activity, May Shower and May Take a Tub Bath (after 1 week) May resume sexual activity in: 1-2 weeks Weight Bearing Status: Weight bearing as tolerated Lifting Restrictions: none Dressing / Incision Call your doctor if you observe: Fever of 101 or Higher, Using more than 1 pad per hour, Shortness of breath and Uncontrolled pain Follow Up Care Please Follow Up With: Mary Grace Ibrahim MD When: Call [phone] to schedule appointment. Test Results: Test results from this visit will be discussed in further detail at your follow-up appointment, if applicable. Discharge Plan Admission Primary Reason for Your Visit: hysteroscopy Attending Provider: Mary Grace Ibrahim Primary Care Provider: Veronica Whyte Discharge Orders/Prescriptions Prescriptions: Continued vitamins A,C,V-fmvm-npnewl 7,160 unit-113 mg-100 unit tablet 7,160-113-100 bkyc-oh-mdtw tablet 1 tab PO BID RF: 0 B-complex with vitamin C Tablet 1 tab PO DAILY RF: 0 Prolia 60 mg/mL syringe 60 mg subcut [id number] RF: 0 biotin 1,000 mcg tablet,chewable 1,000 mcg PO DAILY RF: 0 cholecalciferol (vitamin D3) 50 mcg (2,000 unit) capsule 50 mcg PO DAILY RF: 0 calcium-magnesium 300-300 mg tablet 1 tab PO DAILY RF: 0 sertraline [Zoloft] 25 mg tablet 25 mg PO DAILY RF: 0 levothyroxine [Synthroid] 88 mcg Tablet 88 mcg PO SUTUTHSA RF: 0 levothyroxine [Synthroid] 88 mcg Tablet 44 mcg PO MOWEFR RF: 0 Referrals / Follow Up: Veronica Whyte MD [Primary Care Provider] - Mary Grace Ibrahim MD [STAFF PHYSICIAN] - Disposition Disposition (needs filled in before D/C Order can be placed): Home, Self Care
[2021-04-21] MEDS: Lidocaine 1% (20 ml mdv) 20 ML Vial (11:00)
[2021-04-21 11:27] VITALS: BP 104/68; BP 123/69; PULSE 66; RESP 16; TEMP 36.3; O2SAT 100
[2021-04-21 11:32] VITALS: BP 120/71; BP 123/69; PULSE 64; RESP 16; O2SAT 100
[2021-04-21 11:37] VITALS: BP 123/69; BP 131/53; PULSE 62; RESP 16; O2SAT 100
[2021-04-21 11:42] VITALS: BP 123/69; BP 128/71; PULSE 59; RESP 16; TEMP 36.2; O2SAT 100
[2021-04-21 12:31] VITALS: BP 123/69; BP 125/86; PULSE 57; RESP 16; TEMP 36.3; O2SAT 100
== END 2021-04-21 12:35 | disposition home or self-care (01) ==
LOC: SDC 08:15 → AC 08:16
PROVIDERS: PCP Internal Medicine; Referring Provider Obstetrics & Gynecology; Visit Provider Obstetrics & Gynecology
PROC: 0UDB8ZZ Extraction of Endometrium, Via Natural or Artificial Opening Endoscopic (ICD-10-PCS; CPT 58558; principal; 2021-04-21 09:35)
DX: N84.1 Polyp of cervix uteri (principal); M19.90 Unspecified osteoarthritis, unspecified site; M06.9 Rheumatoid arthritis, unspecified; E07.9 Disorder of thyroid, unspecified; F32.9 Major depressive disorder, single episode, unspecified; Z79.899 Other long term (current) drug therapy; E78.5 Hyperlipidemia, unspecified; Z87.891 Personal history of nicotine dependence; N94.10 Unspecified dyspareunia; R93.89 Abnormal findings on diagnostic imaging of other specified body structures
CPT/HCPCS: 00952; 58558; 80053; 85025; 86850; 86900; 86901; 88305; 93005; J7120; J2405

== ENCOUNTER → 2021-06-02 12:14 | Outpatient (CLI) | payer MEDICARE, OTHER, SELFPAY ==
[2021-06-02 14:28] LABS: Thyroid Stim Hormone (TSH) 3.56 uIU/mL (0.358-3.74)
== END ==
PROVIDERS: PCP Internal Medicine; Referring Provider Internal Medicine Endocrinology, Diabetes & Metabolism; Visit Provider Internal Medicine Endocrinology, Diabetes & Metabolism
DX: E03.9 Hypothyroidism, unspecified (principal)
CPT/HCPCS: 36415; 84443

== ENCOUNTER → 2021-09-10 12:59 | Outpatient (CLI) | payer MEDICARE, OTHER, SELFPAY ==
[2021-09-10 13:15] VITALS: BP 104/67; PULSE 79; RESP 16; TEMP 36.6; O2SAT 97
[2021-09-10] MEDS: DENOSUMAB 60 MG/ML SC (13:25)
== END ==
PROVIDERS: PCP Internal Medicine; Referring Provider Internal Medicine; Visit Provider Internal Medicine
DX: M81.0 Age-related osteoporosis without current pathological fracture (principal)
CPT/HCPCS: 96372; J0897

== ENCOUNTER 2021-12-15 07:41 | Outpatient (CLI) | payer MEDICARE, OTHER, SELFPAY ==
[2021-12-15 10:06] LABS: T4 Free Direct 1.07 ng/dL (0.76-1.46); Thyroid Stim Hormone (TSH) 3.67 uIU/mL (0.358-3.74)
== END 2021-12-15 23:59 | disposition home or self-care (01) ==
LOC: LAB 07:43
PROVIDERS: PCP Internal Medicine; Referring Provider Internal Medicine Endocrinology, Diabetes & Metabolism; Visit Provider Internal Medicine Endocrinology, Diabetes & Metabolism
DX: E03.9 Hypothyroidism, unspecified (principal)
CPT/HCPCS: 36415; 84439; 84443

== ENCOUNTER → 2022-03-11 | Outpatient (CLI) | payer MEDICARE, OTHER, SELFPAY ==
[2022-03-11] MEDS: DENOSUMAB 60 MG/ML SC (13:05)
[2022-03-11 13:10] VITALS: BP 129/78; PULSE 57; RESP 16; TEMP 36.2; O2SAT 100
== END | disposition home or self-care (01) ==
LOC: MEDOUTP 12:57
PROVIDERS: PCP Internal Medicine; Referring Provider Internal Medicine; Visit Provider Internal Medicine
DX: M81.0 Age-related osteoporosis without current pathological fracture (principal)
CPT/HCPCS: 96372; J0897

== ENCOUNTER → 2022-03-24 | Outpatient (CLI) | payer MEDICARE, OTHER, SELFPAY ==
--- NOTE | 2022-03-24 12:23 | BI_ITS ---
MAMMOGRAPHY - UNILATERAL SCREENING: RIGHT BREAST REASON FOR EXAM: Female, 71 years old. Routine annual screening examination (unilateral). PERTINENT HISTORY: Personal history of breast cancer at age 45 status post left mastectomy and chemotherapy. Sister with breast cancer. Aunt with breast cancer. TECHNIQUE: Digital unilateral breast yovani (3D mammographic acquisition) in the CC and MLO projections. 2-D mediolateral oblique (MLO) and craniocaudad (CC) views of both breasts were obtained. CAD: Full Field Digital Mammography with Computer Added Detection was performed. COMPARISON: Mammogram from 03/18/2021, 11/26/2019, 11/14/2018, 09/05/2017. FINDINGS: Breast Composition: The breasts are heterogeneously dense, which may obscure small masses. There are no dominant masses or suspicious calcifications. Stable area of architectural distortion in the right upper outer breasts consistent with history of prior excisional breast biopsy. No other significant abnormalities are identified. There has been no significant change since the prior study. BI/SCREEN MAMM (CAD) W/YOVANI UNI R IMPRESSION: Stable unilateral screening mammogram. Yearly follow-up mammogram recommended. (A) ASSESSMENT CATEGORY: BIRADS Category 2: Benign. A letter regarding these results will be sent to the patient by the facility within 30 days. Approximately 10% of breast cancers are not detected by mammography. A normal mammogram should not delay biopsy of a clinically suspicious abnormality. [id number] Electronically Signed: Ghulam Medina, at 15:48 EDT ,
== END | disposition home or self-care (01) ==
LOC: OPBI 12:22
PROVIDERS: PCP Internal Medicine; Visit Provider Internal Medicine
DX: Z12.31 Encounter for screening mammogram for malignant neoplasm of breast (principal)
CPT/HCPCS: 77063; 77067

== ENCOUNTER → 2022-06-09 | Outpatient (CLI) | payer MEDICARE, OTHER, SELFPAY ==
[2022-06-09 09:07] LABS: T4 Free Direct 1.16 ng/dL (0.76-1.46); Thyroid Stim Hormone (TSH) 4.68 uIU/mL (0.358-3.74)
== END | disposition home or self-care (01) ==
LOC: LAB 07:54
PROVIDERS: PCP Internal Medicine; Referring Provider Internal Medicine Endocrinology, Diabetes & Metabolism; Visit Provider Internal Medicine Endocrinology, Diabetes & Metabolism
DX: E03.9 Hypothyroidism, unspecified (principal)
CPT/HCPCS: 36415; 84439; 84443

== ENCOUNTER → 2022-09-10 | Outpatient (CLI) | payer MEDICARE, OTHER, SELFPAY ==
[2022-09-10 13:02] VITALS: BP 101/64; PULSE 65; RESP 16; TEMP 36.1; O2SAT 98; BMI 21.9
[2022-09-10] MEDS: DENOSUMAB 60 MG/ML SC (13:04)
== END | disposition home or self-care (01) ==
LOC: MEDOUTP 12:52
PROVIDERS: PCP Internal Medicine; Referring Provider Internal Medicine; Visit Provider Internal Medicine
DX: M81.0 Age-related osteoporosis without current pathological fracture (principal)
CPT/HCPCS: 96372; J0897

== ENCOUNTER → 2022-12-14 | Outpatient (CLI) | payer MEDICARE, OTHER, SELFPAY ==
[2022-12-14 08:50] LABS: T4 Free Direct 1.11 ng/dL (0.76-1.46); Thyroid Stim Hormone (TSH) 2.95 uIU/mL (0.358-3.74)
== END | disposition home or self-care (01) ==
LOC: LAB 08:05
PROVIDERS: PCP Internal Medicine; Referring Provider Internal Medicine Endocrinology, Diabetes & Metabolism; Visit Provider Internal Medicine Endocrinology, Diabetes & Metabolism
DX: E03.9 Hypothyroidism, unspecified (principal)
CPT/HCPCS: 36415; 84439; 84443

== ENCOUNTER 2023-03-18 12:50 | Outpatient (CLI) | payer MEDICARE, OTHER, SELFPAY ==
[2023-03-18 12:56] VITALS: BP 121/62; PULSE 65; RESP 16; TEMP 36.9; O2SAT 99; BMI 21.5
[2023-03-18] MEDS: DENOSUMAB 60 MG/ML SC (13:01)
== END 2023-03-18 12:51 | disposition home or self-care (01) ==
LOC: MEDOUTP 12:51
PROVIDERS: PCP Internal Medicine; Referring Provider Internal Medicine; Visit Provider Internal Medicine
DX: M81.0 Age-related osteoporosis without current pathological fracture (principal)
CPT/HCPCS: 96372; J0897

== ENCOUNTER → 2023-03-29 | Outpatient (CLI) | payer MEDICARE, OTHER, SELFPAY ==
--- NOTE | 2023-03-29 09:47 | BI_ITS ---
MAMMOGRAPHY - UNILATERAL SCREENING: RIGHT BREAST REASON FOR EXAM: Female, 72 years old. Routine annual screening examination (unilateral). PERTINENT HISTORY: Personal history of breast cancer. Prior left mastectomy. Prior right excisional breast biopsies. Sister with breast cancer. TECHNIQUE: Digital unilateral breast yovani (3D mammographic acquisition) in the CC and MLO projections. 2-D mediolateral oblique (MLO) and craniocaudad (CC) views of both breasts were obtained. CAD: Full Field Digital Mammography with Computer Added Detection was performed. COMPARISON: Comparison is made with prior study dated March 24, 2022 and March 18, 2021. FINDINGS: Breast Composition: The breasts are extremely dense, which lowers the sensitivity of mammography. There are no dominant masses or suspicious calcifications. Stable focal area of architectural distortion in the upper outer aspect of the right breast in keeping with prior excisional breast biopsy. No other significant abnormalities are identified. There has been no significant change since the prior study. BI/SCREEN MAMM (CAD) W/YOVANI UNI R IMPRESSION: Stable unilateral screening mammogram. Yearly follow-up mammogram recommended. (A) ASSESSMENT CATEGORY: BIRADS Category 2: Benign. A letter regarding these results will be sent to the patient by the facility within 30 days. Approximately 10% of breast cancers are not detected by mammography. A normal mammogram should not delay biopsy of a clinically suspicious abnormality. [id number] Electronically Signed: Linus Noble MD at 11:54 EDT ,
--- NOTE | 2023-03-29 09:58 | BD_ITS ---
STUDY: DUAL ENERGY X-RAY ABSORPTIOMETRY / DXA REASON FOR EXAM: Female, 72 years old. [id number] TECHNIQUE: Bone Mineral Density (BMD) measurements of lumbar spine and bilateral hips were obtained. COMPARISON: Comparison is made with prior study dated March 18, 2021. FINDINGS: Lumbar Spine (L1-L4): g/cm2 (1.091) / T-score (0.4) / Z-score (2.6) Findings are suggestive of normal bone density with a low fracture risk. Left Femur Total: g/cm2 (0.686) / T-score (-2.1) / Z-score (-0.5) Left Femoral Neck: g/cm2 (0.595) / T-score (-2.3) / Z-score (-0.4) Right Femur Total: g/cm2 (0.652) / T-score (-2.4) / Z-score (-0.7) Right Femoral Neck: g/cm2 (0.599) / T-score (-2.2) / Z-score (-0.3) The T-Scores on the most recent prior examination were: Lumbar Spine (L1-L4): There has been worsening of bone density since the previous examination. Left Femur Total: which represents no significant change. . Right Femur Total: which represents a worsening of 3.5%. BD/Dexa Bone Density Study IMPRESSION: The patient is considered osteopenic as outlined below according to World Matthew Organization (WHO) criteria with a high fracture risk. There has been worsening of bone density since the previous examination. Reference Information: The T-score is the number of standard deviations above or below the standard which is normal for young adults at their peak bone mineral density. The World Health Organization (WHO) interprets the T-scores as follows: Above -1 Normal bone density Between -1 and -2.5 Osteopenia Equal to / or below -2.5 Osteoporosis As a practical clinical guideline, osteopenia may be graded as follows: Mild -1 through -1.5 Moderate -1.6 through -2.0 Severe -2.1 through -2.4 The Z-score is the number of standard deviations above or below age-matched controls. A Z-score of less than -1.5 would be considered abnormal. References: 1. NIH Osteoporosis and Related Bone Diseases www osteo.org 2. International Society for Clinical Densitometry www iscd.org 3. National Osteoporosis Foundation www nof.org Electronically Signed: Linus Noble MD at 15:48 EDT ,
== END | disposition home or self-care (01) ==
LOC: OPBD 09:46
PROVIDERS: PCP Internal Medicine; Referring Provider Internal Medicine; Visit Provider Internal Medicine
DX: Z78.0 Asymptomatic menopausal state (principal); Z12.31 Encounter for screening mammogram for malignant neoplasm of breast
CPT/HCPCS: 77063; 77067; 77080

== ENCOUNTER → 2023-06-13 | Outpatient (CLI) | payer MEDICARE, OTHER, SELFPAY ==
[2023-06-13 08:43] LABS: T4 Free Direct 1.25 ng/dL (0.76-1.46); Thyroid Stim Hormone (TSH) 5.78 uIU/mL (0.358-3.74)
== END | disposition home or self-care (01) ==
LOC: LAB 07:36
PROVIDERS: PCP Internal Medicine; Referring Provider Internal Medicine Endocrinology, Diabetes & Metabolism; Visit Provider Internal Medicine Endocrinology, Diabetes & Metabolism
DX: E03.9 Hypothyroidism, unspecified (principal)
CPT/HCPCS: 36415; 84439; 84443

== ENCOUNTER 2023-07-07 08:30 | Outpatient (RCR) | payer MEDICARE, OTHER, SELFPAY ==
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
--- NOTE | 2023-07-07 15:17 | HP.PTREVAL ---
Re-Evaluation Intro: Dr. Veronica Whyte MD, It has been my pleasure to treat JEFF KEVIN over the last 3 visits for Low back pain. Please see the progress note below for an update on the physical therapy plan of care! Subjective Subjective: Pt. reports I am doing much better, no episodes since last time. I still have pain, but is much better. Objective Objective/Function: Discussed pelvic tilt vs TA contraction. We discussed proper technique with deadbugs and with her HEP. Pt. is overall doing well. I would like her to continue to stretch her hip flexors and work on core stability. Pt. complete for 3-4 weeks to see if she is able to complete I at this point in time. If she is doing well she is to cancel her next appt and we will DC. Plan Plan Plan: Pt. complete for 3-4 weeks to see if she is able to complete I at this point in time. If she is doing well she is to cancel her next appt and we will DC. Pt. given HEP for core stability in neutral spine and hip flexor stretching. Pt. able to complete with good mechanics this date. Balance/Gait/Functional tests Balance/Special Test Scores Oswestry Low Back Score: 22 Goals Goals Goal 1:: LTG: Pt. to be I with HEP. Goal Time Frame: 4-6 Weeks Goal Progress: Progressing Goal 2:: LTG: Pt. to have increased core strength to fair+ in order to reduce stress to lumbar spine wiht all functional and recreational activities. Goal Time Frame: 4-6 Weeks Goal Progress: Progressing Goal 3:: LTG: Pt. have decreased episodes of high level back pain to x1 per month. Goal Time Frame: 4-6 Weeks Goal Progress: Progressing Goal 4:: LTG: Pt. to be I in prophalaxis program of her low back pain. Goal Time Frame: 2-4 Weeks Goal Progress: Progressing Anticipated Interventions Anticipated Interventions Patient/Client Instruction: Educate patient on: Condition, Plan of Care, Risk Factors and Benefits of Fitness Program For the Purpose of:: To facilitate caregiver knowledge, To improve self management, To prevent re-injury, To improve ability to perform tasks related to life management and To improve tolerance to ADL's Therapeutic Exercise to Include: Strength training, Power training, Postural training, Flexibilty training, Passive ROM, Active ROM and Dynamic Lumbar Stabilization For the Purpose of:: To decrease pain, To increase ROM, To improve nutrient delivery to tissue, To improve muscle performance and motor function, To improve ability of physical actions for home/community/work/leisure, To improve health of tissue, To decrease soft tissue restriction and To increase flexibility/ROM Re-Evaluation Ending Re-evaluation ending: Please do not hesitate to contact me at [phone] by phone or if you have questions or concerns regarding this new plan of care! Sincerely, GRAHAM [employer]
== END 2023-07-07 19:00 | disposition home or self-care (01) ==
LOC: PT 08:30
PROVIDERS: PCP Internal Medicine; Referring Provider Internal Medicine; Visit Provider Internal Medicine
DX: M54.50 Low back pain, unspecified (principal)
CPT/HCPCS: 97110; 97161

== ENCOUNTER → 2023-09-12 | Outpatient (CLI) | payer MEDICARE, OTHER, SELFPAY ==
[2023-09-12 09:56] LABS: T4 Free Direct 1.37 ng/dL (0.76-1.46); Thyroid Stim Hormone (TSH) 0.96 uIU/mL (0.358-3.74)
== END | disposition home or self-care (01) ==
LOC: LAB 08:06
PROVIDERS: PCP Internal Medicine; Visit Provider Internal Medicine Endocrinology, Diabetes & Metabolism
DX: E03.9 Hypothyroidism, unspecified (principal)
CPT/HCPCS: 36415; 84439; 84443

== ENCOUNTER → 2023-12-08 | Outpatient (CLI) | payer MEDICARE, OTHER, SELFPAY ==
[2023-12-08 09:13] LABS: T4 Free Direct 1.24 ng/dL (0.76-1.46); Thyroid Stim Hormone (TSH) 2.26 uIU/mL (0.358-3.74)
== END | disposition home or self-care (01) ==
LOC: LAB 08:04
PROVIDERS: PCP Internal Medicine; Referring Provider Internal Medicine Endocrinology, Diabetes & Metabolism; Visit Provider Internal Medicine Endocrinology, Diabetes & Metabolism
DX: E03.9 Hypothyroidism, unspecified (principal)
CPT/HCPCS: 36415; 84439; 84443

== ENCOUNTER → 2024-03-13 | Outpatient (CLI) | payer MEDICARE, OTHER, SELFPAY ==
--- NOTE | 2024-03-13 06:42 | ECHOD_ITS ---
Reason For Study: personal hx of other diseases of the circulatory system Procedure This was a 2D Doppler, Color Flow transthoracic echocardiogram. Myocardial strain analysis was performed in this exam to aid in the assessment of cardiac function. Exam performed in department. Left Ventricle Normal LV size. Left ventricular systolic function is lower limits of normal. The estimated ejection fraction is 53 %. Stage 1 diastolic dysfunction. No regional wall motion abnormalities noted. Right Ventricle Normal RV size. Normal systolic function. Atria Normal left atrium. Normal right atrium. Mitral Valve Normal mitral valve. Tricuspid Valve Normal tricuspid valve. Mild tricuspid valve insufficiency. Pulmonary artery systolic pressure is 22 mmHg. Aortic Valve Normal aortic valve. Trisinus/trileaflet aortic valve. Mild (1+) aortic valve insufficiency. Pulmonic Valve Normal pulmonic valve. Great Vessels Normal aortic root. The pulmonary artery is normal size. Normal inferior vena cava. Pericardium/Pleural No pericardial effusion. MMode/2D Measurements & Calculations LVIDd: 5.0 cm IVSd: 0.70 cm Ao root diam: 3.6 cm LVIDs: 3.4 cm LVPWd: 0.55 cm RVDd: 3.2 cm FS: 32.6 % LAV(MOD-bp): 37.2 ml LVAd ap4: 25.9 cm2 LVAd ap2: 22.1 cm2 LAV(MOD-bp) Indexed: 24.6 ml/m2 LVLd ap4: 7.4 cm LVLd ap2: 7.0 cm LAV(MOD-sp2): 45.0 ml EDV(MOD-sp4): 73.7 ml EDV(MOD-sp2): 57.6 ml LAV(MOD-sp4): 28.5 ml EDV(sp4-el): 76.4 ml EDV(sp2-el): 59.1 ml LVAs ap4: 15.8 cm2 LVAs ap2: 13.1 cm2 LVLs ap4: 6.2 cm LVLs ap2: 6.0 cm ESV(MOD-sp4): 33.6 ml ESV(MOD-sp2): 24.5 ml ESV(sp4-el): 34.4 ml ESV(sp2-el): 24.0 ml EF(MOD-sp4): 54.4 % EF(MOD-sp2): 57.4 % EF(sp4-el): 55.0 % SV(MOD-sp4): 40.1 ml SV(MOD-sp2): 33.1 ml SV(sp4-el): 42.0 ml LA dimension(2D): 2.7 cm LA A4 area: 12.7 cm2 RA A4 area: 15.1 cm2 TAPSE: 2.1 cm Time Measurements MV dec time: 0.24 sec Doppler Measurements & Calculations MV E max carlitos: 35.6 cm/sec Lat Peak E' Carlitos: 6.3 cm/sec Med Peak E' Carlitos: 6.8 cm/sec MV A max carlitos: 48.2 cm/sec E/E' lat: 5.6 E/E' med: 5.2 MV E/A: 0.74 MV V2 max: 79.1 cm/sec MV P1/2t max carlitos: 79.7 cm/sec Ao V2 max: 103.3 cm/sec MV max P.5 mmHg MV P1/2t: 57.9 msec Ao max P.3 mmHg MV V2 mean: 27.9 cm/sec MV dec slope: 403.4 cm/sec2 Ao V2 mean: 73.4 cm/sec MV mean P.43 mmHg Ao mean P.4 mmHg MV V2 VTI: 19.7 cm MVA(P1/2t): 3.8 cm2 Ao V2 VTI: 22.7 cm AV (velocity ratio): 0.88 AI max carlitos: 419.6 cm/sec LV V1 max: 94.1 cm/sec PA V2 max: 100.6 cm/sec AI max P.5 mmHg LV V1 max P.5 mmHg PA V2 mean: 59.8 cm/sec AI dec slope: 177.9 cm/sec2 LV V1 mean P.1 mmHg AI P1/2t: 691.0 msec LV V1 mean: 68.0 cm/sec LV V1 VTI: 19.9 cm TR max carlitos: 210.2 cm/sec TR max P.7 mmHg ECHO/Echo Complete Interpretation Summary Normal LV size. Left ventricular systolic function is lower limits of normal. The estimated ejection fraction is 53 %. Stage 1 diastolic dysfunction. Pulmonary artery systolic pressure is 22 mmHg. The global longitudinal strain is normal. The global longitudinal strain = -17. 6 % (normal). Ordering Physician: Veronica Whyte Referring Physician: Veronica Whyte Performed By: Suzanne Ramsay, SHARON, RVT
== END | disposition home or self-care (01) ==
LOC: CVS 06:38
PROVIDERS: PCP Internal Medicine; Referring Provider Internal Medicine; Visit Provider Internal Medicine
DX: Z86.79 Personal history of other diseases of the circulatory system (principal); I47.19 Other supraventricular tachycardia
CPT/HCPCS: 93306

== ENCOUNTER → 2024-03-21 | Outpatient (CLI) | payer MEDICARE, OTHER, SELFPAY ==
--- NOTE | 2024-03-21 16:12 | STRESSREP ---
Stress Test Report Exercise myocardial perfusion stress test. 70-year-old lady with a history of palpitations Stress protocol: Resting EKG demonstrates sinus bradycardia with a rate of 57 bpm resting blood pressure is 112/72 mmHg. The patient exercised according to the regular Azael protocol for a total duration of 4 minutes and 15 seconds attaining a maximum heart rate of 136 bpm which was 92% of maximum predicted heart rate; the maximum workload was 7 metabolic equivalents. At rest there were no ST or T wave changes noted to suggest ischemia and at peak exercise upsloping ST changes only were noted which did not meet the criteria for ischemia. No clinical angina was noted the test was terminated due to the target heart rate being achieved/fatigue. The peak blood pressure was 150/62 mmHg. Rate-pressure product was 20,000. Myocardial perfusion protocol. 11.3 mCi of technetium 99m sestamibi was injected at rest. The patient exercised according to regular Azael protocol for total duration of 4 minutes and 15 seconds and at peak exercise 33.9 mCi of technetium 99m sestamibi was injected stress images were obtained stress and rest images were reconstructed in comparing the short axis vertical long and horizontal long axis. Gated images were also obtained. Perfusion SPECT analysis: Review of the stress images demonstrate normal uptake of tracer noted in all areas of the myocardium. The resting images similarly demonstrate normal uptake of tracer noted in all areas of the myocardium. No areas of reversibility are noted to suggest ischemia no previous infarct was noted. Gated SPECT analysis: The gated ejection fraction is 65%. Conclusion: Normal exercise myocardial perfusion stress test at a moderate workload Preserved ejection fraction.
== END | disposition home or self-care (01) ==
LOC: CVS 06:21
PROVIDERS: PCP Internal Medicine; Referring Provider Internal Medicine; Visit Provider Internal Medicine
DX: R07.9 Chest pain, unspecified (principal)
CPT/HCPCS: 78452; 93017; A9500; A4216

== ENCOUNTER → 2024-05-24 | Outpatient (CLI) | payer MEDICARE, OTHER, SELFPAY ==
--- NOTE | 2024-05-24 07:51 | BI_ITS ---
MAMMOGRAPHY - UNILATERAL SCREENING: RIGHT BREAST REASON FOR EXAM: Female, 73 years old. Routine annual screening examination (unilateral). PERTINENT HISTORY: Personal history of breast cancer. Prior left mastectomy. Sister with breast cancer. Aunt with breast cancer. Cancer TECHNIQUE: Digital unilateral breast yovani (3D mammographic acquisition) in the CC and MLO projections. 2-D mediolateral oblique (MLO) and craniocaudad (CC) views of both breasts were obtained. CAD: Full Field Digital Mammography with Computer Added Detection was performed. COMPARISON: Comparison is made with prior study dated March 29, 2023 and March 24, 2022. FINDINGS: Breast Composition: The breasts are extremely dense, which lowers the sensitivity of mammography. There are no dominant masses or suspicious calcifications. Stable focal area of architectural distortion in the upper outer aspect of the right breast and compared with prior excisional breast biopsy. No other significant abnormalities are identified. There has been no significant change since the prior study. BI/SCREEN MAMM (CAD) W/YOVANI UNI R IMPRESSION: Stable unilateral screening mammogram. Yearly follow-up mammogram recommended. (A) ASSESSMENT CATEGORY: BIRADS Category 2: Benign. A letter regarding these results will be sent to the patient by the facility within 30 days. Approximately 10% of breast cancers are not detected by mammography. A normal mammogram should not delay biopsy of a clinically suspicious abnormality. [id number] Electronically Signed: Linus Noble MD at 8:20 EDT ,
== END | disposition home or self-care (01) ==
LOC: OPBI 07:51
PROVIDERS: PCP Internal Medicine; Referring Provider Internal Medicine; Visit Provider Internal Medicine
DX: Z12.31 Encounter for screening mammogram for malignant neoplasm of breast (principal)
CPT/HCPCS: 77063; 77067

== ENCOUNTER → 2024-06-01 | Outpatient (CLI) | payer MEDICARE, OTHER, SELFPAY | END | disposition home or self-care (01) | LOC: PSN 07:54 | PROVIDERS: PCP Internal Medicine; Referring Provider Internal Medicine; Visit Provider Internal Medicine | DX: I47.19 Other supraventricular tachycardia (principal) | CPT/HCPCS: 93225; 93226 ==

== ENCOUNTER → 2024-06-18 | Outpatient (CLI) | payer MEDICARE, OTHER, SELFPAY ==
[2024-06-18 09:44] LABS: T4 Free Direct 1.33 ng/dL (0.76-1.46)
== END | disposition home or self-care (01) ==
LOC: LAB 08:29
PROVIDERS: PCP Internal Medicine; Referring Provider Internal Medicine Endocrinology, Diabetes & Metabolism; Visit Provider Internal Medicine Endocrinology, Diabetes & Metabolism
DX: E03.9 Hypothyroidism, unspecified (principal)
CPT/HCPCS: 36415; 84439; 84443

== ENCOUNTER → 2024-07-13 | Outpatient (CLI) | payer MEDICARE, OTHER, SELFPAY | END | disposition home or self-care (01) | PROVIDERS: PCP Internal Medicine; Referring Provider Internal Medicine Endocrinology, Diabetes & Metabolism; Visit Provider Internal Medicine Endocrinology, Diabetes & Metabolism | DX: E03.9 Hypothyroidism, unspecified (principal) | CPT/HCPCS: 36415; 84443 ==

== ENCOUNTER → 2024-12-31 | Outpatient (CLI) | payer MEDICARE, OTHER, SELFPAY | END | disposition home or self-care (01) | LOC: LAB 06:43 | PROVIDERS: PCP Internal Medicine; Referring Provider Internal Medicine Endocrinology, Diabetes & Metabolism; Visit Provider Internal Medicine Endocrinology, Diabetes & Metabolism | DX: E03.9 Hypothyroidism, unspecified (principal) | CPT/HCPCS: 36415; 84439; 84443 ==

== ENCOUNTER → 2025-05-21 | Outpatient (CLI) | payer MEDICARE, OTHER, SELFPAY ==
--- NOTE | 2025-05-21 15:52 | US_ITS ---
PROCEDURE: THYROID 05/21/2025 REASON FOR EXAM: THYROID NODULE TECHNIQUE: THYROID COMPARISON: Prior study dated March 19, 2019. FINDINGS: Right thyroid lobe the right lobe of the thyroid gland has been resected. Left thyroid lobe size: 5.1 cm by 2.6 cm x 2.5 cm Isthmus: Surgically removed. Background parenchymal echotexture is heterogeneous Nodules: No nodules seen. US/Thyroid IMPRESSION: Status post resection of the right lobe of the thyroid as well as the isthmus. Heterogeneous enlargement of the left lobe. RECOMMENDATION: Based on most suspicious nodule. Nodule size = largest diameter Only evaluate nodule if =>5 mm. Growth > 20% in 2 dimensions = worsening. Follow up to 4 nodules. Recommend biopsy for no more than 2 nodules. Reading Location: [id number]
== END | disposition home or self-care (01) ==
LOC: US 15:47
PROVIDERS: PCP Internal Medicine; Referring Provider Internal Medicine; Visit Provider Internal Medicine
DX: E04.1 Nontoxic single thyroid nodule (principal)
CPT/HCPCS: 76536

== ENCOUNTER → 2025-05-29 | Outpatient (CLI) | payer MEDICARE, OTHER, SELFPAY ==
--- NOTE | 2025-05-29 13:24 | BI_ITS ---
EXAM: SCREEN MAMM (CAD) W/YOVANI UNI R DATE: 05/29/2025 CLINICAL HISTORY: F, Age 74 y/o , SCRN MAMM (CAD)W/YOVANI BILAT DUE AFTER 05/24/2025 Personal history of breast cancer. Sister with breast cancer. Aunt with breast cancer. Status post left mastectomy. TECHNIQUE: SCREEN MAMM (CAD) W/YOVANI UNI R COMPARISON: Prior exam(s) dated May 24, 2024.. FINDINGS: TISSUE DENSITY: The breasts are extremely dense, which lowers the sensitivity of mammography. Bilateral Breast Mammographic Findings: No significant masses, calcifications or other abnormalities are identified. No suspicious masses, areas of developing architectural distortion, or suspicious calcifications. There has been no significant interval change. BI/SCREEN MAMM (CAD) W/YOVANI UNI R IMPRESSION: Stable examination. OVERALL FINAL ASSESSMENT BI-RADS 1: NEGATIVE. RECOMMENDATION: Routine annual follow-up in 1 Year A letter with findings and recommendations will be mailed to the patient. Reading Location: [facility]
== END | disposition home or self-care (01) ==
LOC: OPBI 13:24
PROVIDERS: PCP Internal Medicine; Referring Provider Internal Medicine; Visit Provider Internal Medicine
DX: Z12.31 Encounter for screening mammogram for malignant neoplasm of breast (principal)
CPT/HCPCS: 77063; 77067

== ENCOUNTER → 2025-09-05 | Outpatient (CLI) | payer MEDICARE, OTHER, SELFPAY ==
[2025-09-05 10:40] LABS: Hematocrit 41.9 % (37-47); Hemoglobin 13.6 g/dL (12.0-15.0); Immature Granulocytes Count 0.000 X10^3/uL (0.0-0.0); Mean Corp Hgb Conc 32.5 g/dL (32-36); Mean Corpuscular Volume 96.1 fL (81-99); Mean Platelet Vol. 11.1 fl (6.2-12.0); NRBC Flagged by Analyzer 0 % (0-5); Platelet Count 224 K/mm3 (150-450); RBC Distribution Width CV 12.8 % (11.6-14.6); RBC Distribution Width SD 45.2 fl (35.1-43.9); Red Blood Count 4.36 M/mm3 (4.2-5.4); White Blood Count 4.3 K/mm3 (4.4-11.0)
[2025-09-05 11:34] LABS: AST(SGOT) 22 U/L (<=31); Alanine Aminotransfer ALT/SGPT 12 U/L (<=34); Albumin, Serum 4.2 g/dL (3.4-4.8); Alkaline Phosphatase 49 U/L (35-104); Anion Gap 9 (5-15); BUN 22 mg/dL (4-19); BUN/Creat Ratio 25.4 RATIO (10-20); Calcium,Total 9.2 mg/dL (7.6-11.0); Carbon Dioxide 27.2 mmol/L (21.0-32.0); Chloride 104 mmol/L (98-108); Cholesterol 190 mg/dL (<=200); Globulin 2.8 g/dL (2.2-4.2); Glucose 82 mg/dL (70-99); Low Density Lipoprotein Calc. 100 mg/dL; Potassium 4.2 mmol/L (3.3-5.1); Triglycerides 48 mg/dL; Very Low Density Lipoprotein 10 mg/dL (5-40); Vitamin D,25 Hydroxy 51.4 ng/mL (30-100); cholesterol:hdl ratio screen 2.35
== END | disposition home or self-care (01) ==
LOC: CIMLAB 07:26
PROVIDERS: PCP Internal Medicine; Referring Provider Internal Medicine; Visit Provider Internal Medicine
DX: E55.9 Vitamin D deficiency, unspecified (principal); E03.9 Hypothyroidism, unspecified; I47.19 Other supraventricular tachycardia
CPT/HCPCS: 36415; 80053; 80061; 82306; 84443; 85025

== ENCOUNTER → 2025-09-30 | Outpatient (CLI) | payer MEDICARE, OTHER, SELFPAY | END | disposition home or self-care (01) | LOC: LABSPEC 12:40 | PROVIDERS: PCP Internal Medicine; Referring Provider Internal Medicine; Visit Provider Internal Medicine | DX: R22.32 Localized swelling, mass and lump, left upper limb (principal) | CPT/HCPCS: 87070; 87077; 87186; 87205 ==